=== PATIENT | male | born 1990 | race American Indian/Alaskan Native ===

== ENCOUNTER 2017-11-07 10:05 | Emergency (ER) | payer MEDICAID ==
[2017-11-07 10:47] VITALS: BP 165/97
[2017-11-07 11:10] LABS: Basophils % (Auto) 0.3 % (0.0-1.8); Eosinophils # (Auto) 0.1 K/mm3 (0.0-0.4); Eosinophils % (Auto) 1.4 % (0.0-4.3); Hematocrit 24.3 % (35.5-45.6); Hemoglobin 7.7 gm/dl (11.8-15.2); Lymphocytes # (Auto) 1.6 K/mm3 (1.2-5.4); Mean Corpuscular HGB Conc 32 % (32-34); Mean Corpuscular Volume 80 fl (84-94); Monocytes # (Auto) 0.4 K/mm3 (0.0-0.8); Monocytes % (Auto) 7.9 % (0.0-7.3); Platelet Count 203 K/mm3 (140-440); Red Blood Count 3.04 M/mm3 (3.65-5.03); Red Cell Distribution Width 15.8 % (13.2-15.2)
[2017-11-07 11:15] LABS: Mean Corpuscular Hemoglobin 26 pg (28-32)
[2017-11-07 11:27] LABS: Albumin 4.3 g/dL (3.9-5); BUN/Creatinine Ratio 3; Blood Urea Nitrogen 55 mg/dL (9-20); Calcium 7.9 mg/dL (8.4-10.2); Hemolysis Index 2
[2017-11-07 11:32] LABS: Alanine Aminotransferase < 5 units/L (7-56)
== END 2017-11-07 17:10 | disposition left against medical advice (07) ==
LOC: MERGE 10:05 → ED 10:05
DX: N18.6 End stage renal disease (principal); Z53.21 Procedure and treatment not carried out due to patient leaving prior to being seen by health care provider
CPT/HCPCS: 36415; 80053; 85025

== ENCOUNTER 2017-11-10 06:16 | Emergency (ER) | payer MEDICAID ==
[2017-11-10] MEDS ORDERED: ASPIRIN PO ONE (06:40)
[2017-11-10 07:25] LABS: Basophils % (Auto) 0.5 % (0.0-1.8); Eosinophils # (Auto) 0.1 K/mm3 (0.0-0.4); Eosinophils % (Auto) 2.3 % (0.0-4.3); Hematocrit 25.3 % (35.5-45.6); Lymphocytes # (Auto) 1.8 K/mm3 (1.2-5.4); Lymphocytes % (Auto) 37.1 % (13.4-35.0); Mean Corpuscular HGB Conc 32 % (32-34); Mean Corpuscular Volume 81 fl (84-94); Monocytes # (Auto) 0.3 K/mm3 (0.0-0.8); Monocytes % (Auto) 7.1 % (0.0-7.3); Platelet Count 216 K/mm3 (140-440); Red Blood Count 3.13 M/mm3 (3.65-5.03); Red Cell Distribution Width 15.6 % (13.2-15.2)
[2017-11-10 07:28] LABS: Mean Corpuscular Hemoglobin 26 pg (28-32)
[2017-11-10 07:35] LABS: Albumin 4.7 g/dL (3.9-5); BUN/Creatinine Ratio 3; Blood Urea Nitrogen 69 mg/dL (9-20); Calcium 8.4 mg/dL (8.4-10.2); Hemolysis Index 4
[2017-11-10 07:36] LABS: Alanine Aminotransferase < 5 units/L (7-56)
[2017-11-10] MEDS ORDERED: D50W (25GM) Syringe IV ONE ×3 (08:45→10:28)
[2017-11-10] MEDS ORDERED: SODIUM BICARBONATE IV ONE (08:45)
[2017-11-10] MEDS ORDERED: HumuLIN R IV ONE (08:46)
--- NOTE | 2017-11-10 08:55 | Emergency Department Report ---
ED General Adult HPI - General Chief complaint: Medical Clearance Stated complaint: DIALYSIS Time Seen by Provider: 11/10/17 08:41 Source: patient Mode of arrival: Ambulatory Limitations: No Limitations - History of Present Illness Initial comments: This is a patient that freely admits that he is medically compliant and has no scheduled dialysis because of that. He was here yesterday and scheduled for dialysis by Dr. Telles. However, last night he left AMA. He did not report that information but did tell me he has hasn't had dialysis for one week. 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 According to the hospitalist note, he essentially gets dialysis once a week whenever he feels like he needs it. He reported back here today desiring dialysis. He incidentally states that he had "some small chest pain". He is not having any active chest pain now. He is not complaining of shortness of breath nor has he been recently acutely short of breath. He is talking on his cell phone concurrently with my encounter and having his blood drawn. Obviously, he is in no acute distress. -: Gradual, minutes(s) (as far as the chest pain is resolved and was transient per the patient minor in intensity), week(s) Location: chest Radiation: non-radiation Quality: other ("a small chest pain") Consistency: now resolved Improves with: none Worsens with: none Associated Symptoms: denies other symptoms Treatments Prior to Arrival: none - Related Data Home Medications Medication Instructions Recorded Confirmed Last Taken Calcium Acetate [Phoslo] 2,001 mg PO TIDWM 11/09/17 11/09/17 11/08/17 Allergies Allergy/AdvReac Type Severity Reaction Status Date / Time No Known Allergies Allergy Verified 11/09/17 08:19 ED Review of Systems ROS: Stated complaint: DIALYSIS Other details as noted in HPI ED Past Medical Hx - Past Medical History Previous Medical History?: Yes Hx Hypertension: Yes Hx Congestive Heart Failure: No Hx Diabetes: No Hx Kidney Stones: Yes (dialysis T, Th, Sat) Hx Asthma: No Hx COPD: No - Surgical History Past Surgical History?: Yes Additional Surgical History: fistula L. arm - Social History Smoking Status: Never Smoker Substance Use Type: None - Medications Home Medications: Home Medications Medication Instructions Recorded Confirmed Last Taken Type Calcium Acetate [Phoslo] 2,001 mg PO TIDWM 11/09/17 11/09/17 11/08/17 History ED Physical Exam - General Limitations: No Limitations ED Course Vital Signs 11/10/17 06:19 Temperature 98.3 F Pulse Rate 69 Respiratory 14 Rate Blood Pressure 162/101 O2 Sat by Pulse 100 Oximetry - Reevaluation(s) Reevaluation #1: The patient was given a hyperkalemia cocktail. He remained clinically stable. The turntable operator ordered emergency dialysis. The patient has been sent for dialysis. He is admitted by Dr. Solano to the hospitalist service. 11/10/17 10:29 ED Medical Decision Making - Lab Data Result diagrams: 11/10/17 06:57 11/10/17 07:03 Laboratory Results - last 24 hr 11/10/17 11/10/17 11/10/17 06:57 07:02 07:03 WBC 4.9 RBC 3.13 L Hgb 8.0 L Hct 25.3 L MCV 81 L MCH 26 L MCHC 32 RDW 15.6 H Plt Count 216 Lymph % (Auto) 37.1 H Wilkes % (Auto) 7.1 Eos % (Auto) 2.3 Baso % (Auto) 0.5 Lymph # 1.8 Wilkes # 0.3 Eos # 0.1 Baso # 0.0 Seg Neutrophils % 53.0 Seg Neutrophils # 2.6 Sodium 137 Potassium 6.7 H* Chloride 93.7 L Carbon Dioxide 22 Anion Gap 28 BUN 69 H Creatinine 23.2 H Estimated GFR 3 BUN/Creatinine Ratio 3 Glucose 83 POC Glucose Calcium 8.4 Total Bilirubin 0.40 AST 8 ALT < 5 L Alkaline Phosphatase 123 Troponin T 0.011 Total Protein 8.0 Albumin 4.7 Albumin/Globulin Ratio 1.4 11/10/17 11/10/17 11/10/17 08:37 09:54 10:19 WBC RBC Hgb Hct MCV MCH MCHC RDW Plt Count Lymph % (Auto) Wilkes % (Auto) Eos % (Auto) Baso % (Auto) Lymph # Wilkes # Eos # Baso # Seg Neutrophils % Seg Neutrophils # Sodium Potassium Chloride Carbon Dioxide Anion Gap BUN Creatinine Estimated GFR BUN/Creatinine Ratio Glucose POC Glucose 48 L 171 H Calcium Total Bilirubin AST ALT Alkaline Phosphatase Troponin T 0.017 Total Protein Albumin Albumin/Globulin Ratio - EKG Data -: EKG Interpreted by Ma EKG shows normal: sinus rhythm Rate: normal - EKG Data Interpretation: other (peak T waves consistent with hyperkalemia) - Radiology Data interpreted by me: Chest x-ray showed no acute process Critical care attestation.: If time is entered above; I have spent that time in minutes in the direct care of this critically ill patient, excluding procedure time. ED Disposition Clinical Impression: Hyperkalemia, End-stage renal disease needing dialysis, Hypoglycemia Disposition: OP ADMIT IP TO THIS HOSP Is pt being admited?: Yes Does the pt Need Aspirin: No Condition: Stable Referrals: PRIMARY CARE, [Primary Care Provider] - 3-5 Days Time of Disposition: 10:34
--- NOTE | 2017-11-10 09:07 | XRay Report ---
FINAL REPORT EXAM: XR CHEST 1V AP HISTORY: cp TECHNIQUE: AP portable view(s) of the chest obtained. PRIORS: None. FINDINGS: No mediastinal shift. Cardiac silhouette is not enlarged. No pneumothorax, effusion, or focal pulmonary opacity identified. No acute skeletal findings. IMPRESSION: No acute pulmonary finding identified.
[2017-11-10] MEDS ORDERED: NACL 0.9% 100 ML IV PRN (09:36)
--- NOTE | 2017-11-10 10:57 | History and Physical Report ---
History of Present Illness Date of examination: 11/10/17 Date of admission: 11/10/17 Chief complaint: End-stage renal disease, noncompliant, presented to the emergency room for hemodialysis History of present illness: 27-year-old male patient who was admitted yesterday for emergency hemodialysis Was evaluated by nephrology, scheduled for dialysis, however patient left AMA Return today morning to receive hemodialysis Noted to have severe hyperkalemia, received treatment in the ER nephrology consulted Scheduled for stat hemodialysis Initial evaluation shows severe hyperkalemia, creatinine more than 20 Patient basically did not have any shortness of breath, complaints of vague chest pain Patient is very noncompliant Past History Past Medical History: dialysis, ESRD Past Surgical History: Other (AVgraft) Social history: denies: smoking, alcohol abuse Family history: hypertension Medications and Allergies Allergies Allergy/AdvReac Type Severity Reaction Status Date / Time No Known Allergies Allergy Verified 11/09/17 08:19 Home Medications Medication Instructions Recorded Confirmed Last Taken Type Calcium Acetate [Phoslo] 2,001 mg PO TIDWM 11/09/17 11/09/17 11/08/17 History Review of Systems Constitutional: no weight loss, no weight gain Ears, nose, mouth and throat: no nasal congestion, no nasal discharge Cardiovascular: no chest pain, no orthopnea, no palpitations Respiratory: no cough, no shortness of breath Gastrointestinal: no abdominal pain, no nausea, no vomiting Genitourinary Male: no dysuria, no flank pain Musculoskeletal: no myalgias, no arthritis Integumentary: no rash, no lesions Neurological: no seizures, no syncope Psychiatric: no anxiety, no depression Endocrine: no cold intolerance, no heat intolerance, no polydipsia, no polyuria Hematologic/Lymphatic: no easy bruising, no easy bleeding Allergic/Immunologic: no urticaria, no allergic rhinitis Exam - Constitutional Vitals: Temp Pulse Resp BP Pulse Ox 98.3 F 69 14 162/101 100 11/10/17 06:19 11/10/17 06:19 11/10/17 06:19 11/10/17 06:19 11/10/17 06:19 General appearance: Present: no acute distress, well-nourished - EENT Eyes: Present: PERRL, EOM intact - Neck Neck: Present: supple, normal ROM - Respiratory Respiratory effort: normal Respiratory: bilateral: diminished, negative: rales, rhonchi, wheezing - Cardiovascular Rhythm: regular Heart Sounds: Present: S1 & S2 - Extremities Extremities: no ischemia, No edema - Abdominal General gastrointestinal: Present: soft, non-tender, non-distended, normal bowel sounds - Integumentary Integumentary: Present: clear, warm - Musculoskeletal Musculoskeletal: strength equal bilaterally - Psychiatric Psychiatric: appropriate mood/affect, cooperative - Neurologic Neurologic: CNII-XII intact, moves all extremities Results - Labs CBC & Chem 7: 11/10/17 06:57 11/10/17 07:03 Labs: Abnormal lab results 11/10/17 11/10/17 11/10/17 Range/Units 06:57 07:03 09:54 RBC 3.13 L (3.65-5.03) M/mm3 Hgb 8.0 L (11.8-15.2) gm/dl Hct 25.3 L (35.5-45.6) % MCV 81 L (84-94) fl MCH 26 L (28-32) pg RDW 15.6 H (13.2-15.2) % Lymph % (Auto) 37.1 H (13.4-35.0) % Potassium 6.7 H* (3.6-5.0) mmol/L Chloride 93.7 L (98-107) mmol/L BUN 69 H (9-20) mg/dL Creatinine 23.2 H (0.8-1.5) mg/dL POC Glucose 48 L (70-105) ALT < 5 L (7-56) units/L 11/10/17 Range/Units 10:19 RBC (3.65-5.03) M/mm3 Hgb (11.8-15.2) gm/dl Hct (35.5-45.6) % MCV (84-94) fl MCH (28-32) pg RDW (13.2-15.2) % Lymph % (Auto) (13.4-35.0) % Potassium (3.6-5.0) mmol/L Chloride (98-107) mmol/L BUN (9-20) mg/dL Creatinine (0.8-1.5) mg/dL POC Glucose 171 H (70-105) ALT (7-56) units/L Assessment and Plan --Hyperkalemia; secondary to end-stage renal disease Received treatment in the ED, stat hemodialysis --End-stage renal disease on hemodialysis; nephrology following Hemodialysis today --Medical noncompliance; Counselling --DVT prophylaxis; heparin renal dose
--- NOTE | 2017-11-10 12:41 | Progress Note ---
Assessment and Plan assessment: * ESRD * Hypertension * Hyperkalemia * Anemia * non-compliance Recommendation: * dialysis has been initiated . Tolerating well * epogen with dialysis * Binders with diet * no AV, BP or venipuncture in access arm * Patient advised regarding compliance Subjective Date of service: 11/10/17 Interval history: patient signed out AMA without getting dialysis yesterday Returns to ER today . K is 6.7 Dialysis has been initiated . He is tolerating well . Objective - Vital Signs Vital signs: Vital Signs - 12hr 11/10/17 06:19 Temperature 98.3 F Pulse Rate 69 Respiratory 14 Rate Blood Pressure 162/101 O2 Sat by Pulse 100 Oximetry - General Appearance General appearance: well-developed, well-nourished, appears stated age EENT: PERRL, mucous membranes moist Neck: no JVD, no thyromegaly, no carotid bruit, supple Respiratory: Present: Clear to Ascultation Cardiology: regular, normal heart rate, S1S2, no murmurs Gastrointestinal: normal, normoactive bowel sounds Integumentary: no rash, other (left fore-arm AVF . Good bruit and thrill ) - Lab 11/10/17 06:57 11/10/17 07:03 Most recent lab results Calcium 8.4 mg/dL (8.4-10.2) 11/10/17 07:03
--- NOTE | 2017-11-10 15:29 | Discharge Summary ---
Providers - Providers Date of discharge: 11/10/17 Primary care physician: YASMIN GALLAGHER MD Hospitalization Condition: Stable Disposition: DC-07 LEFT AGAINST MED ADVICE Time spent for discharge: 31 min Core Measure Documentation - Palliative Care Palliative Care/ Comfort Measures: Not Applicable - Core Measures Any of the following diagnoses?: none Exam - Constitutional Vitals: Temp Pulse Resp BP Pulse Ox 96.7 F L 49 L 20 204/106 100 11/10/17 10:45 11/10/17 12:15 11/10/17 10:45 11/10/17 12:15 11/10/17 06:19 General appearance: Present: no acute distress, well-nourished - EENT Eyes: Present: PERRL, EOM intact - Neck Neck: Present: supple, normal ROM - Respiratory Respiratory effort: normal Respiratory: negative: rales, rhonchi, wheezing - Cardiovascular Rhythm: regular Heart Sounds: Present: S1 & S2 - Extremities Extremities: no ischemia, pulses intact - Abdominal General gastrointestinal: Present: soft, non-tender, non-distended, normal bowel sounds - Integumentary Integumentary: Present: clear, warm - Musculoskeletal Musculoskeletal: strength equal bilaterally - Psychiatric Psychiatric: appropriate mood/affect, cooperative - Neurologic Neurologic: CNII-XII intact, moves all extremities Plan Activity: no restrictions Diet: renal Additional Instructions: Advised to comply with Hemodialysis per schedule. F/U renal and HD per schedule Follow up with: YASMIN GALLAGHER MD [Primary Care Provider] - 3-5 Days JASE SOTO MD [Staff Physician] - 7 Days
[2017-11-10 17:08] VITALS: BP 190/100
[2017-11-10] MEDS ORDERED: NACL 0.9 (PRIMING MACHINE ONLY DIALYSIS) MC ONE (19:05)
== END 2017-11-10 10:44 | disposition left against medical advice (07) ==
LOC: ED 06:16
DX: E87.5 Hyperkalemia (principal); E11.22 Type 2 diabetes mellitus with diabetic chronic kidney disease; E11.649 Type 2 diabetes mellitus with hypoglycemia without coma; N18.6 End stage renal disease; Z99.2 Dependence on renal dialysis; I12.0 Hypertensive chronic kidney disease with stage 5 chronic kidney disease or end stage renal disease
CPT/HCPCS: 36415; 71045; 80053; 82962; 84484; 85025; 93005; 93010; 96374; 96375; 96376; 99284; J7030; J1815

== ENCOUNTER 2017-11-28 07:22 | Emergency (ER) | payer MEDICAID ==
[2017-11-28 11:36] VITALS: BP 169/101
== END 2017-11-28 12:55 | disposition left against medical advice (07) ==
LOC: ED 07:22
DX: Z99.2 Dependence on renal dialysis (principal); Z53.21 Procedure and treatment not carried out due to patient leaving prior to being seen by health care provider

== ENCOUNTER 2017-11-29 05:24 | Observation (INO) | payer MEDICAID ==
[2017-11-29 06:17] LABS: Basophils % (Auto) 0.5 % (0.0-1.8); Eosinophils # (Auto) 0.1 K/mm3 (0.0-0.4); Eosinophils % (Auto) 3.4 % (0.0-4.3); Hematocrit 22.3 % (35.5-45.6); Hemoglobin 7.2 gm/dl (11.8-15.2); Lymphocytes # (Auto) 1.7 K/mm3 (1.2-5.4); Lymphocytes % (Auto) 40.2 % (13.4-35.0); Mean Corpuscular HGB Conc 33 % (32-34); Mean Corpuscular Hemoglobin 26 pg (28-32); Mean Corpuscular Volume 81 fl (84-94); Monocytes # (Auto) 0.4 K/mm3 (0.0-0.8); Monocytes % (Auto) 8.3 % (0.0-7.3); Platelet Count 284 K/mm3 (140-440); Red Blood Count 2.76 M/mm3 (3.65-5.03); Red Cell Distribution Width 17.7 % (13.2-15.2)
[2017-11-29 08:30] LABS: Albumin 4.4 g/dL (3.9-5); BUN/Creatinine Ratio 3; Blood Urea Nitrogen 72 mg/dL (9-20); Calcium 7.8 mg/dL (8.4-10.2); Hemolysis Index 7
[2017-11-29 08:57] LABS: Alanine Aminotransferase < 5 units/L (7-56)
[2017-11-29] MEDS ORDERED: TYLENOL PO PRN (09:47)
[2017-11-29] MEDS ORDERED: SODIUM CHLORIDE FLUSH SYRINGE 10 ML IV PRN (09:47)
[2017-11-29] MEDS ORDERED: ZOFRAN IV PRN (09:47)
--- NOTE | 2017-11-29 09:47 | Emergency Department Report ---
ED General Adult HPI - General Chief complaint: Recheck/Abnormal Lab/Rx Stated complaint: DIALYSIS Time Seen by Provider: 11/29/17 07:41 Source: patient Mode of arrival: Ambulatory Limitations: No Limitations - History of Present Illness Initial comments: Patient reports no HD for over a week. Reports called by nephrology to come to the ER today for HD. Denies symptoms Severity scale (0 -10): 0 - Related Data Home Medications Medication Instructions Recorded Confirmed Last Taken Sertraline [Zoloft] 25 mg PO QDAY 10/24/17 11/29/17 Unknown Previous Rx's Medication Instructions Recorded Last Taken Type Calcium Acetate [Phoslo] 2,001 mg PO TIDWM 30 Days 11/20/17 Unknown Rx Lisinopril [Zestril TAB] 40 mg PO QDAY 30 Days tablet 11/20/17 Unknown Rx amLODIPine [Norvasc] 5 mg PO QDAY #30 tablet 11/20/17 Unknown Rx Allergies Allergy/AdvReac Type Severity Reaction Status Date / Time No Known Allergies Allergy Verified 11/28/17 07:28 ED Review of Systems ROS: Stated complaint: DIALYSIS Other details as noted in HPI Other: GENERAL: No weight change, fatigue, weakness, fever, chills, or night sweats SKIN: No changes in skin or hair, no itching, no rashes, no jaundice HEAD: No trauma, headache, or visual changes EYES: No blurriness, tearing, itching, acute visual loss, conjunctival discoloration, or scleral icterus EARS: No hearing loss, tinnitus, vertigo, or earache NOSE: No rhinorrhea, stuffiness, sneezing, itching, or epistaxis MOUTH: No bleeding gums, hoarseness, sore throat, or swelling CARDIAC: No new murmur, chest pain, palpitations, dyspnea on exertion, orthopnea , PND, or edema RESPIRATORY: No shortness of breath, wheeze, cough, sputum production, hemoptysis, pneumonia, asthma, bronchitis, or emphysema GI: No change in appetite, nausea, vomiting, dysphagia, change in bowel frequency, diarrhea, constipation, bleeding, hematemesis, melena, hematochezia, or abdominal pain URINARY: No frequency, urgency, polyuria, dysuria, hematuria, or incontinence MUSCULOSKELETAL: No muscle weakness, joint stiffness, decrease in range of motion, redness, swelling NEUROLOGIC: No loss of sensation, numbness, tingling, tremors, weakness, paralysis, seizures HEMATOLOGIC: No anemia, easy bruising, bleeding, petechiae, or purpura ENDOCRINE: No hot or cold intolerance, sweating, polyuria, polydipsia or, polyphagia no thyroid problems PSYCHIATRIC: No change in mood, no anxiety, no depression ED Past Medical Hx - Past Medical History Hx Hypertension: Yes Hx Congestive Heart Failure: No Hx Diabetes: No Hx Renal Disease: Yes (Bartter Disease) Hx Kidney Stones: Yes (dialysis T, , Sun) Hx Asthma: No Hx COPD: No - Surgical History Additional Surgical History: fistula L. arm - Social History Smoking Status: Never Smoker Substance Use Type: None - Medications Home Medications: Home Medications Medication Instructions Recorded Confirmed Last Taken Type Sertraline [Zoloft] 25 mg PO QDAY 10/24/17 11/29/17 Unknown History Calcium Acetate [Phoslo] 2,001 mg PO TIDWM 30 Days 11/20/17 11/29/17 Unknown Rx Lisinopril [Zestril TAB] 40 mg PO QDAY 30 Days tablet 11/20/17 11/29/17 Unknown Rx amLODIPine [Norvasc] 5 mg PO QDAY #30 tablet 11/20/17 11/29/17 Unknown Rx ED Physical Exam - General Limitations: No Limitations - Other Other exam information: GENERAL: Patient in no acute distress HEAD: Normocephalic, atraumatic EYES: PERRLA, EOM intact, no scleral icterus, visual gotti and acuity wnl NOSE: No tenderness, discharge, sinus tenderness MOUTH: No erythema, bleeding, exudate HEART: Regular rate and rhythm, no murmur, S1-S2 are auscultated, pulses are symmetric LUNGS: bilateral breath sounds. No wheezing, rales, rhonchi ABDOMEN: Normal bowel sounds, no tenderness, no rebound, no guarding, no masses , no CVA tenderness MUSCULOSKELETAL: Normal joint range of motion, no redness, no swelling, no tenderness NEUROLOGIC: GCS 15, Alert and Oriented x3, Cranial nerves intact, normal sensation, normal strength, normal gait, no cerebellar deficit SKIN: Skin is warm and dry, no wounds, no rashes ED Course Vital Signs 11/29/17 11/29/17 11/29/17 05:35 06:55 11:28 Temperature 99 F 97.6 F 98.6 F Pulse Rate 75 67 60 Respiratory 18 16 20 Rate Blood Pressure 155/98 Blood Pressure 161/104 172/107 [Right] O2 Sat by Pulse 98 100 100 Oximetry 11/29/17 11:53 Temperature Pulse Rate 60 Respiratory Rate Blood Pressure 172/107 Blood Pressure [Right] O2 Sat by Pulse Oximetry ED Medical Decision Making - Lab Data Result diagrams: 11/29/17 05:52 11/29/17 05:52 - Medical Decision Making At 0809 Dr. Morales nephrology updated. Request obtain CMP and call back with result so that HD can be ordered. At [address] Morales request admit to the hospitalist. Dr. Stern hospitalist request admit to Dr. Ferreira and ronal bridge orders Critical care attestation.: If time is entered above; I have spent that time in minutes in the direct care of this critically ill patient, excluding procedure time. ED Disposition Clinical Impression: Encounter for hemodialysis for ESRD, Uremia, Hyperkalemia Volume overload Qualifiers: Hypervolemia type: unspecified Qualified Code(s): E87.70 - Fluid overload, unspecified Disposition: OP ADMIT IP TO THIS HOSP Is pt being admited?: Yes Condition: Stable Time of Disposition: 09:47
[2017-11-29] MEDS ORDERED: SODIUM CHLORIDE FLUSH SYRINGE 10 ML IV SCH (10:00)
[2017-11-29] MEDS ORDERED: CALCIUM GLUCONATE 1,000 MG in NACL 0.9% 100 ML IV ONE (10:00)
[2017-11-29] MEDS ORDERED: NACL 0.9% 100 ML IV PRN (11:07)
[2017-11-29] MEDS ORDERED: APRESOLINE IV ONE (11:24)
[2017-11-29] MEDS ORDERED: APRESOLINE ONE (11:53)
--- NOTE | 2017-11-29 13:19 | History and Physical Report ---
History of Present Illness Date of admission: 11/29/17 09:47 Medications and Allergies Allergies Allergy/AdvReac Type Severity Reaction Status Date / Time No Known Allergies Allergy Verified 11/28/17 07:28 Home Medications Medication Instructions Recorded Confirmed Last Taken Type Sertraline [Zoloft] 25 mg PO QDAY 10/24/17 11/29/17 Unknown History Calcium Acetate [Phoslo] 2,001 mg PO TIDWM 30 Days 11/20/17 11/29/17 Unknown Rx Lisinopril [Zestril TAB] 40 mg PO QDAY 30 Days tablet 11/20/17 11/29/17 Unknown Rx amLODIPine [Norvasc] 5 mg PO QDAY #30 tablet 11/20/17 11/29/17 Unknown Rx Active Meds: Active Medications Acetaminophen (Tylenol) 650 mg PO Q4H PRN PRN Reason: Pain MILD(1-3)/Fever >100.5/JOHNSON Sodium Chloride (Nacl 0.9%) 100 mls @ 999 mls/hr IV REYNALDO PRN PRN Reason: Hypotension Ondansetron HCl (Zofran) 4 mg IV Q8H PRN PRN Reason: Nausea And Vomiting Sodium Chloride (Sodium Chloride Flush Syringe 10 Ml) 10 ml IV BID OPAL Last Admin: 11/29/17 10:57 Dose: 10 ml Sodium Chloride (Sodium Chloride Flush Syringe 10 Ml) 10 ml IV PRN PRN PRN Reason: LINE FLUSH Exam - Physical Exam Narrative exam: GEN:Not in acute distress, HEENT: Normocephalic, atraumatic, Neck: supple, No JVD Lungs:Clear to auscultation bilaterally, no crackles, no wheeze Heart:S1 and S2 reg, no murmurs, rubs or gallop Abd:soft, non-tender, non-distended, Normal bowel sounds Ext: No edema, clubbing or cyanosis Neuro:AAO x 3, No focal neurological signs - Constitutional Vitals: Temp Pulse Resp BP Pulse Ox 98.6 F 60 20 172/107 100 11/29/17 11:28 11/29/17 11:53 11/29/17 11:28 11/29/17 11:53 11/29/17 11:28 Results - Labs CBC & Chem 7: 11/29/17 05:52 11/29/17 05:52 Labs: Abnormal lab results 11/29/17 11/29/17 Range/Units 05:52 05:52 WBC 4.2 L (4.5-11.0) K/mm3 RBC 2.76 L (3.65-5.03) M/mm3 Hgb 7.2 L (11.8-15.2) gm/dl Hct 22.3 L (35.5-45.6) % MCV 81 L (84-94) fl MCH 26 L (28-32) pg RDW 17.7 H (13.2-15.2) % Lymph % (Auto) 40.2 H (13.4-35.0) % Hendry % (Auto) 8.3 H (0.0-7.3) % Potassium 6.5 H* (3.6-5.0) mmol/L Chloride 94.8 L (98-107) mmol/L Carbon Dioxide 20 L (22-30) mmol/L BUN 72 H (9-20) mg/dL Creatinine 24.4 H (0.8-1.5) mg/dL Calcium 7.8 L (8.4-10.2) mg/dL ALT < 5 L (7-56) units/L
[2017-11-29] MEDS ORDERED: ZESTRIL PO SCH (14:00)
[2017-11-29] MEDS ORDERED: NORVASC PO SCH ×2 (14:00)
[2017-11-29] MEDS ORDERED: ZOLOFT PO SCH (14:00)
[2017-11-29] MEDS ORDERED: NACL 0.9 (PRIMING MACHINE ONLY DIALYSIS) MC ONE (14:22)
--- NOTE | 2017-11-29 16:34 | Consultation ---
History of Present Illness - Reason for Consult Consult date: 11/29/17 end stage renal disease, hyperkalemia, other (Anemia) - History of Present Illness The patient is a 27 YO Male, well known to our service, with history significant for HTN, Bartter's syndrome, ESRD on HD, Anemia, right sided Deshpande's palsy and Medical Noncompliance currently dont have a established outpatient dialysis unit who presented to ED for evaluation of missed dialysis. Patient was last dialyzed on 11/19/17 at [facility]. He has been receiving HD at different hospitals about once a week. Patient denies any cp, sob, weakness, N, V, D, abd pain, fever, chills, cough, leg swelling or syncope. He told me that he is going to go home after dialysis today. Past History Past Medical History: anemia, dialysis, ESRD, hypertension Medications and Allergies Allergies Allergy/AdvReac Type Severity Reaction Status Date / Time No Known Allergies Allergy Verified 11/28/17 07:28 Home Medications Medication Instructions Recorded Confirmed Last Taken Type Sertraline [Zoloft] 25 mg PO QDAY 10/24/17 11/29/17 Unknown History Calcium Acetate [Phoslo] 2,001 mg PO TIDWM 30 Days 11/20/17 11/29/17 Unknown Rx Lisinopril [Zestril TAB] 40 mg PO QDAY 30 Days tablet 11/20/17 11/29/17 Unknown Rx amLODIPine [Norvasc] 5 mg PO QDAY #30 tablet 11/20/17 11/29/17 Unknown Rx Active Meds: Active Medications Acetaminophen (Tylenol) 650 mg PO Q4H PRN PRN Reason: Pain MILD(1-3)/Fever >100.5/JOHNSON Amlodipine Besylate (Norvasc) 10 mg PO QDAY [facility] Last Admin: 11/29/17 16:17 Dose: Not Given Calcium Acetate (Phoslo) 2,001 mg PO TIDWM [facility] Sodium Chloride (Nacl 0.9%) 100 mls @ 999 mls/hr IV REYNALDO PRN PRN Reason: Hypotension Lisinopril (Zestril) 40 mg PO QDAY [facility] Last Admin: 11/29/17 16:17 Dose: Not Given Ondansetron HCl (Zofran) 4 mg IV Q8H PRN PRN Reason: Nausea And Vomiting Sertraline HCl (Zoloft) 25 mg PO QDAY [facility] Last Admin: 11/29/17 16:17 Dose: Not Given Sodium Chloride (Sodium Chloride Flush Syringe 10 Ml) 10 ml IV BID [facility] Last Admin: 11/29/17 10:57 Dose: 10 ml Sodium Chloride (Sodium Chloride Flush Syringe 10 Ml) 10 ml IV PRN PRN PRN Reason: LINE FLUSH Review of Systems Constitutional: no weight loss, no weight gain, no fever, no chills, no anorexia , no poor appetite Cardiovascular: high blood pressure, no chest pain, no orthopnea, no edema, no syncope, no lightheadedness, no shortness of breath, no dyspnea on exertion, no leg edema Respiratory: no cough, no hemoptysis, no shortness of breath Gastrointestinal: no abdominal pain, no nausea, no vomiting, no diarrhea, no melena, no jaundice Genitourinary Male: no dysuria, no hematuria Integumentary: no rash, no sores, no wounds, no jaundice Neurological: no paralysis, no weakness, no syncope, no convulsions, no confusion, no memory loss Psychiatric: no anxiety, no memory loss Endocrine: no weight change Exam - Vital Signs Vital signs: Vital Signs Temp Pulse Resp BP Pulse Ox 99 F 75 18 155/98 98 11/29/17 05:35 11/29/17 05:35 11/29/17 05:35 11/29/17 05:35 11/29/17 05:35 - General Appearance General appearance: well-developed, well-nourished, appears stated age, other ( not in distress) EENT: ATNC, PERRL, hearing intact, vision intact Neck: Present: neck supple, trachea midline Respiratory: Clear to Ascultation Heart: regular, S1S2, no murmurs Gastrointestinal: Present: normoactive bowel sounds. Absent: tenderness Integumentary: no rash, warm and dry Neurologic: no asterixis, alert and oriented x3, other (right sided deshpande's palsy ) Musculoskeletal: Present: other (no edema, left FA AVF) Results - Lab Results 11/29/17 05:52 11/29/17 05:52 Most recent lab results Calcium 7.8 mg/dL (8.4-10.2) L 11/29/17 05:52 Assessment and Plan 1. Hyperkalemia: Secondary to missed hemodialysis. Continue HD as ordered. 2. ESRD: Plan to continue HD three times a week. Continue binders. 3. Anemia: Epogen today. 4. HTN. 5. Medical non-compliance: We are trying to get him a outpatient dialysis chair at [facility]. Compliance encouraged.
[2017-11-29] MEDS ORDERED: PHOSLO PO SCH (17:00)
[2017-11-29 18:12] VITALS: BP 156/85
--- NOTE | 2017-11-29 18:28 | Discharge Summary ---
Providers - Providers Date of Admission: 11/29/17 09:47 Attending physician: LISSET CASILLAS 11/29/17 13:40 Consult to Physician [CONS] Routine Comment: Consulting Provider: MICHELLE MENDOZA Physician Instructions: Reason For Exam: ESRD Primary care physician: YASMIN GALLAGHER MD Hospitalization Condition: Stable Exam - Constitutional Vitals: Temp Pulse Resp BP Pulse Ox 98.2 F 64 18 156/85 96 11/29/17 18:00 11/29/17 18:00 11/29/17 18:00 11/29/17 18:00 11/29/17 13:00 Plan Follow up with: PRIMARY MD AILEEN [Primary Care Provider] - 3-5 Days
== END 2017-11-29 18:30 | disposition left against medical advice (07) ==
LOC: ED 05:24 → 4A 09:47 → 3A 11:28
PROVIDERS: ADMIT Internal Medicine; ATTEND Internal Medicine
DX: I12.0 Hypertensive chronic kidney disease with stage 5 chronic kidney disease or end stage renal disease (principal); N18.6 End stage renal disease; E87.5 Hyperkalemia; D64.9 Anemia, unspecified; Z91.19 Patient's noncompliance with other medical treatment and regimen; Z99.2 Dependence on renal dialysis
CPT/HCPCS: 36415; 80053; 85025; 96372; 96374; 96375; 99285; G0378; J0360; J0610; J0885; J7030